=== PATIENT | male | born 1975 | race Hispanic/Latino ===

== ENCOUNTER 2024-08-29 19:42 | Emergency (ER) | payer SELFPAY ==
[~2024-08-29] VITALS: Ht 182.9 cm; Wt 132.9 kg
--- NOTE | 2024-08-29 20:11 | EKG ---
[facility] Test Date: 2024-08-29 Test Time: 20:09:01 Pat Name: ALLEN BLACKMAN Department: ED Room: Gender: M Crew Director: [id number] : 1975 Requested By: GALINDO DUBOSE Order Number: [id number] Reading MD: Mikel Bergman Measurements Intervals [place] Rate: 113 P: 41 MT: 176 QRS: 156 QRSD: 95 T: 45 QT: 344 QTc: 473 Interpretive Statements Sinus tachycardia Probable left atrial enlargement Inferior infarct, old No previous ECG available for comparison Electronically Signed On 08-29-2024 22:17:30 CDT by Mikel Bergman Please click the below link to view image of tracing.
[2024-08-29 20:35] LABS: BASOPHILS # (AUTO) 0.08 K/uL (0.00-0.20); BASOPHILS % (AUTO) 0.7 % (0.0-5.0); EOSINOPHILS # (AUTO) 0.26 K/uL (0.00-0.70); EOSINOPHILS % (AUTO) 2.2 % (0.0-8.0); HEMATOCRIT 49.4 % (42-54); IMMATURE GRANULOCYTE ABSOLUTE 0.05 K/uL (0-1); LYMPHOCYTES # (AUTO) 2.4 K/uL (1.0-4.8); LYMPHOCYTES % (AUTO) 20.5 % (21.0-51.0); MEAN CORPUSCULAR HEMOGLOBIN 29.2 pg (27.0-33.0); MEAN CORPUSCULAR HGB CONC 33.4 g/dL (32.0-36.0); MEAN CORPUSCULAR VOLUME 87.3 fL (79-99); MONOCYTES # (AUTO) 0.7 K/uL (0.1-1.0); MONOCYTES % (AUTO) 5.7 % (3.0-13.0); NEUTROPHILS # (AUTO) 8.3 K/uL (1.8-7.7); NEUTROPHILS % (AUTO) 70.5 % (40.0-77.0); PLATELET COUNT (AUTO) 258 K/uL (130-400); RED BLOOD CELL COUNT(AUTO) 5.66 MIL/uL (4.50-6.20); RED CELL DISTRIBUTION WIDTH 14.3 % (11.0-15.5); WHITE BLOOD COUNT (AUTO) 11.8 K/uL (4.8-10.8)
--- NOTE | 2024-08-29 20:41 | ERN ---
General Chief Complaint: Abdominal Pain Stated Complaint: ABDOMINAL/BACK PAIN Time Seen by MD: 19:43 Time Seen by Midlevel: 19:43 Source: patient History of Present Illness Initial Comments 48-year-old male who presents to the emergency department due to abdominal pain onset three days. Pain initiated after eating a david. States the pain radiates to the back. Patient reports he had one episode of emesis three days ago but denies any current nausea, vomiting, dysuria, diarrhea or further associated symptoms. He states yesterday he was feeling better but had some spicy wings and pain re-initiated. History of kidney stone. Patient denies any further significant past medical history. Allergies: Coded Allergies: No Known Allergies (Unverified Allergy, Unknown, 08/29/24) Home Meds Active Scripts Omeprazole (Omeprazole) 10 Mg Capsule.dr, 10 MG PO DAILY for 7 Days, #7 CAP Prov:GALINDO DUBOSE 08/29/24 Past Medical History Past Medical History: No Pertinent History Past Surgical History: None ROS Dictation Constitutional: Negative for fever,chills, and weight loss Eyes: Negative for injury, pain,redness, and discharge ENT: Negative for injury,pain or swelling Cardiovascular: Negative for chest pain, palpitations, and edema Respiratory: Negative for shortness of breath, cough, and wheezing, Abdomen/GI: Positive for abdominal pain Negative for nausea, vomiting, diarrhea, and constipation Back: Negative for injury and pain : Negative for painful urination, bleeding or discharge MS/Extremity: Negative for injury and deformity Skin: Negative for rash, and discoloration Neuro: Negative for headache, weakness, numbness, tingling, and seizure Psych: Negative for suicide ideation, homicidal ideation, and hallucinations Physical Exam Physical Exam Dictation General: awake, alert, no acute distress Head/Face: Normocephalic, atraumatic Eyes: PERRL, EOMI, normal conjunctiva ENT: oral cavity clear, oral mucosa moist Neck: Supple, normal range of motion Cardiovascular: RRR, normal S1/S2 Respiratory: CTAB, no respiratory distress, no rales or wheezes Abdomen: Soft, mild epigastric and right upper quadrant tenderness, non- distended, no guarding or rebound Skin: Warm, dry, normal turgor, no rash MS/Extremity: Pulses equal, no cyanosis, neurovascular intact, FROM Neuro: COAx4, GCS 15, strength 5/5, CN 2-12 intact, normal cerebellar exam, normal gait Psych: Normal behavior, mood, and affect normal Results Laboratory and Microbiology Lab and Micro Result Laboratory Tests Test 08/29/24 20:26 08/29/24 20:30 White Blood Count 11.8 K/uL (4.8-10.8) H Red Blood Count 5.66 MIL/uL (4.50-6.20) Hemoglobin 16.5 g/dL (14.0-18.0) Hematocrit 49.4 % (42-54) Mean Corpuscular Volume 87.3 fL (79-99) Mean Corpuscular Hemoglobin 29.2 pg (27.0-33.0) Mean Corpuscular Hemoglobin Concent 33.4 g/dL (32.0-36.0) Red Cell Distribution Width 14.3 % (11.0-15.5) Platelet Count 258 K/uL (130-400) Mean Platelet Volume 9.6 fL (7.5-10.5) Immature Granulocyte % (Auto) 0.4 % (0-1) Neutrophils (%) (Auto) 70.5 % (40.0-77.0) Lymphocytes (%) (Auto) 20.5 % (21.0-51.0) L Monocytes (%) (Auto) 5.7 % (3.0-13.0) Eosinophils (%) (Auto) 2.2 % (0.0-8.0) Basophils (%) (Auto) 0.7 % (0.0-5.0) Neutrophils # (Auto) 8.3 K/uL (1.8-7.7) H Lymphocytes # (Auto) 2.4 K/uL (1.0-4.8) Monocytes # (Auto) 0.7 K/uL (0.1-1.0) Eosinophils # (Auto) 0.26 K/uL (0.00-0.70) Basophils # (Auto) 0.08 K/uL (0.00-0.20) Absolute Immature Granulocyte (auto 0.05 K/uL (0-1) Nucleated Red Blood Cells 0.0 % (0.0-0.19) Sodium Level 135 mmol/L (136-145) L Potassium Level 3.4 mmol/L (3.5-5.1) L Chloride Level 102 mmol/L (101-111) Carbon Dioxide Level 25 mmol/L (21-32) Blood Urea Nitrogen 21 mg/dL (7-18) H Creatinine 1.1 mg/dL (0.5-1.3) Glomerular Filtration Rate Calc 83 mL/min (>90) Random Glucose 220 mg/dL (70-105) H Total Calcium 9.0 mg/dL (8.5-10.1) Total Bilirubin 0.4 mg/dL (0.2-1.0) Direct Bilirubin 0.1 mg/dL (0.0-0.3) Aspartate Amino Transf (AST/SGOT) 20 U/L (10-37) Alanine Aminotransferase (ALT/SGPT) 31 U/L (12-78) Alkaline Phosphatase 115 U/L (50-136) Troponin I High Sensitivity 22 ng/L (4-75) Total Protein 7.9 g/dL (6.0-8.3) Albumin 3.5 g/dL (3.5-5.0) Lipase 144 U/L (16-77) H Urine Color YELLOW (YELLOW) Urine Appearance CLEAR (CLEAR) Urine pH 5.5 (5.0-8.0) Urine Specific [place] 1.034 (1.001-1.031) Urine Protein 100 mg/dL (NEGATIVE) H Urine Glucose (UA) >=1000 mg/dL (NEGATIVE) H Urine Ketones 5 mg/dL (NEGATIVE) H Urine Occult Blood +- (TRACE) (NEGATIVE) H Urine Nitrate NEGATIVE (NEGATIVE) Urine Bilirubin NEGATIVE mg/dL (NEGATIVE) Urine Urobilinogen 3 mg/dL (0.2-1.0) H Urine Leukocyte Esterase NEGATIVE [place]/uL Urine RBC 2-5 /HPF (0-1) H Urine WBC 2-5 /HPF (0-1) H Urine Squamous Epithelial Cells FEW /HPF (0-2) Urine Bacteria RARE /HPF (None Seen) Urine Hyaline Casts 0-1 /LPF (0-1 /LPF) Urine Other Casts 5 /LPF (None Seen) Labs Reviewed?: Yes EKG/XRAY/US/CT/MRI CT Scan Comment REASON: RUQ pain ORDERING PHYSICIAN: GALINDO DUBOSE PROCEDURE: ABD PEL W - CT ABDOMEN/PELVIS W/CONTRAST CT ABDOMEN/PELVIS W/CONTRAST HISTORY: RUQ pain TECHNIQUE: CT ABDOMEN/PELVIS W/CONTRAST Omnipaque contrast was used. Oral contrast was not given. Coronal and sagittal reformats were obtained. CT was performed with one or more of the following dose reduction techniques: Automated exposure control, adjustment of the mA and/or kV according to the patient's size, or use of the iterative reconstruction technique. Comparison: None. FINDINGS: No pulmonary consolidation or pleural effusion is seen. There is hepatic steatosis. No calcified gallstone is seen. The spleen, pancreas, and adrenal glands are within normal limits. No hydronephrosis. The urinary bladder is partially distended. Reproductive organs are grossly within normal limits for patient's age. No bowel obstruction identified. Appendix is normal in caliber. Degenerative changes of the spine. Visualized aorta is normal in caliber. IMPRESSION: No acute CT findings. DICTATED BY: AIRAM MCKEON MD DATE: 08/29/242122 [facility] MDM: Differential diagnosis: Gastritis, gastroenteritis, acid reflux, cholecystitis, cholelithiasis Rationale: 48-year-old male who presents to the emergency department due to abdominal pain onset three days. Pain initiated after eating a david. States the pain radiates to the back. Patient reports he had one episode of emesis three days ago but denies any current nausea, vomiting, dysuria, diarrhea or further associated symptoms. He states yesterday he was feeling better but had some spicy wings and pain re-initiated. History of kidney stone. Patient denies any further significant past medical history. Per physical examination patient is in no acute distress, mild tenderness on palpation of epigastric and right upper quadrant, no CVA tenderness. On initial vitals patient's blood pressure is elevated with systolic in 200s. Labs obtained indicate WBCs of 11.8, sodium 135, potassium 3.4, BUN 21, lipase 144, glucose 220. UA negative for urinary tract infection. CT abdomen and pelvis obtained with no acute abnormalities. Patient was given hydralazine, ketorolac and GI cocktail in the ED. On re-examination patient's blood pressure and pain had improved. Patient was educated on finding, and diagnosis. Diet, blood pressure and follow up with PCP were discussed with patient. Return to the emergency department if any worsening symptoms. Patient verbalized understanding. Patient is stable for discharge. There are no social concerns with this patient. I independently interpreted the test that were performed, results were reviewed by me and considered findings on radiology if ordered. Medical management and examination interpretation discussions were had by me with other qualified healthcare professionals as indicated for the patient's care. ED Course Orders Procedure Category Date Status Time Cbc With Differential LAB 08/29/24 Complete 20:01 Basic Metabolic Panel LAB 08/29/24 Complete 20:01 Urinalysis LAB 08/29/24 Complete W/Microscopic 20:01 Lipase LAB 08/29/24 Complete 20:01 Hepatic Function Panel LAB 08/29/24 Complete 20:01 12 Lead Ekg Tracing- EKG 08/29/24 Resulted Technical 20:04 Troponin I High LAB 08/29/24 Complete Sensitivity 20:04 Ketorolac PHA 08/29/24 Complete Tromethamine 15mg/Ml 20:30 Ct Abdomen/Pelvis CT 08/29/24 Resulted W/Contrast 20:24 Hydralazine 20mg Inj PHA 08/29/24 Complete (Apresoline 20mg In 20:30 Iohexol (Omnipaque) PHA 08/29/24 Complete 20:47 0.9% Nacl 500ml PHA 08/29/24 Complete Iv.Soln (Ns 500ml 22:30 Mag/Alum/Simeth 30ml PHA 08/29/24 Complete (Maalox Plus 30ml) 22:30 Lidocaine Hcl 2% PHA 08/29/24 Complete Viscous (Lidocaine Hcl 22:30 Pantoprazole 40mg Inj PHA 08/29/24 Complete (Protonix 40mg Inj 22:30 Current Medications Medications (Trade) Dose Ordered Sig/Darshan Route PRN Reason Start Time Stop Time Status Last Admin Dose Admin Al Hydroxide/Mg Hydroxide (MAALox PLUS 30ML) 30 ml ONCE ONCE PO 08/29/24 22:30 08/29/24 22:31 DC 08/29/24 22:22 Hydralazine HCl (APRESOLine 20MG INJ) 10 mg ONCE ONCE IV 08/29/24 20:30 08/29/24 20:31 DC 08/29/24 20:45 Iohexol (Omnipaque) 35,000 mg STK-MED ONCE IV 08/29/24 20:47 08/29/24 20:48 DC Ketorolac Tromethamine (toRADol) 15 mg ONCE ONCE IM 08/29/24 20:30 08/29/24 20:31 DC 08/29/24 20:44 Lidocaine HCl (Lidocaine HCl 2% Viscous) 10 ml ONCE ONCE PO 08/29/24 22:30 08/29/24 22:31 DC 08/29/24 22:21 Pantoprazole Sodium (PROTonix 40MG INJ) 40 mg ONCE ONCE IVP 08/29/24 22:30 08/29/24 22:31 DC 08/29/24 22:22 Sodium Chloride 500 ml @ 0 mls/hr ONCE ONCE IV 08/29/24 22:30 08/29/24 22:31 DC 08/29/24 22:22 Vital Signs Date Time Temp Pulse Resp B/P (MAP) Pulse Ox O2 Delivery O2 Flow Rate FiO2 08/29/24 22:56 98.2 98 18 162/99 98 Room Air* 0 08/29/24 21:45 98.4 101 19 154/93 99 Room Air* 0 08/29/24 21:35 98.2 102 18 160/99 97 Room Air* 0 08/29/24 20:39 98.4 105 20 198/115 98 Room Air* 0 08/29/24 19:56 98.8 122 20 217/122 95 Room Air DX & DISP Disposition: Discharge Departure Impression: Primary Impression: Acid reflux Additional Impression: Abdominal pain Condition: Stable Scripts Omeprazole (Omeprazole) 10 Mg Capsule. 10 MG PO DAILY for 7 Days, #7 CAP Prov: GALINDO DUBOSE 08/29/24 Additional Instructions: Discharge home. Rest. Follow up with primary care DrJohn in 24 hours. Return to the ER for any acute changes or worsening symptoms. If any medications were prescribed take as directed. Okay to continue home medications unless otherwise discussed during your visit in the emergency room today. Patient was also advised to follow-up with primary care physician in 1 to 2 days for continued monitoring. I performed the substantive portion of the visit. I have reviewed and personally made and approve the management plan that is documented in the notes by myself or the OCTAVIANO. I acknowledge full responsibility for the patient's management plan. GALINDO DUBOSE Aug 29, 2024 20:41
[2024-08-29 20:42] LABS: APPEARANCE,URINE CLEAR (CLEAR); BILIRUBIN,URINE NEGATIVE (NEGATIVE); COLOR,URINE YELLOW (YELLOW); GLUCOSE, URINE (UA) >=1000 mg/dL (NEGATIVE); KETONES,URINE 5 mg/dL (NEGATIVE); LEUKOCYTE ESTERASE ,URINE NEGATIVE Leu/uL (NEGATIVE); NITRATE,URINE NEGATIVE (NEGATIVE); PH,URINE 5.5 (5.0-8.0); PROTEIN,URINE 100 mg/dL (NEGATIVE); UROBILINOGEN,URINE 3 mg/dL (0.2-1.0)
[2024-08-29] MEDS: ketOROlac 15MG/ML VIAL (15MG/ML) IM ONE (20:44)
[2024-08-29 20:45] LABS: BACTERIA,URINE RARE /HPF (None Seen); HYALINE CASTS, URINE 0-1 /LPF (0-1 /LPF); MUCUS,URINE FEW LPF (None Seen); OTHER CASTS, URINE 5 /LPF (None Seen); SQUAMOUS EPITHELIAL CELL,UR FEW /HPF (0-2)
[2024-08-29] MEDS: hydrALAZine 20MG/ML VIAL IV ONE (20:45)
[2024-08-29] MEDS ORDERED: IOHEXOL 350 MG/ML 100ML INFUS..BTL IV ONE (20:47)
[2024-08-29 20:50] LABS: CREATININE 1.1 mg/dL (0.5-1.3); POTASSIUM 3.4 mmol/L (3.5-5.1)
[2024-08-29 20:54] LABS: ALBUMIN 3.5 g/dL (3.5-5.0); BILIRUBIN,DIRECT 0.1 mg/dL (0.0-0.3); BILIRUBIN,TOTAL 0.4 mg/dL (0.2-1.0); TOTAL PROTEIN, SERUM 7.9 g/dL (6.0-8.3)
--- NOTE | 2024-08-29 21:27 | HMCIMG ---
CT ABDOMEN/PELVIS W/CONTRAST HISTORY: RUQ pain TECHNIQUE: CT ABDOMEN/PELVIS W/CONTRAST Omnipaque contrast was used. Oral contrast was not given. Coronal and sagittal reformats were obtained. CT was performed with one or more of the following dose reduction techniques: Automated exposure control, adjustment of the mA and/or kV according to the patient's size, or use of the iterative reconstruction technique. Comparison: None. FINDINGS: No pulmonary consolidation or pleural effusion is seen. There is hepatic steatosis. No calcified gallstone is seen. The spleen, pancreas, and adrenal glands are within normal limits. No hydronephrosis. The urinary bladder is partially distended. Reproductive organs are grossly within normal limits for patient's age. No bowel obstruction identified. Appendix is normal in caliber. Degenerative changes of the spine. Visualized aorta is normal in caliber. IMPRESSION: No acute CT findings.
[2024-08-29] MEDS: LIDOCAINE HCL 2% VISCOUS 15 ML UDCUP PO ONE (22:21)
[2024-08-29] MEDS: PANTOPrazole 40 MG/VIAL IVP ONE (22:22)
[2024-08-29] MEDS: MAG/ALUM/SIMETH 30 ML UDCUP PO ONE (22:22)
[2024-08-29] MEDS: 0.9% NACL 500ML IV.SOLN 500 ML IV ONE (22:22)
[2024-08-29] MEDS ORDERED: OMEP10CA5 PO (22:50)
[2024-08-29 22:56] VITALS: BP 162/99; PULSE 98; RESP 18; TEMP 98.3; O2SAT 98
== END 2024-08-29 23:00 | disposition home or self-care (01) ==
LOC: EDH 19:42
DX: K21.9 Gastro-esophageal reflux disease without esophagitis (principal); R10.9 Unspecified abdominal pain; Z79.899 Other long term (current) drug therapy
CPT/HCPCS: 99285; 74177; 96374; 96375; 80076; 84484; 80048; 83690; 85025; 81001; 36415; 96372; 93005; J1885; J7040; J0360; J2470; Q9967